=== PATIENT | male | born 1975 | race African-American/Black ===

== ENCOUNTER 2017-10-01 06:39 | Emergency (ER) | payer MEDICAID ==
[~2017-10-01] VITALS: Ht 175.3 cm; Wt 83.9 kg
[2017-10-01 08:01] LABS: Basophils # (auto) 0 uL; Basophils % (auto) 0.6 % (0.0-2.0); Eosinophils # (auto) 0.1 uL; Eosinophils % (auto) 0.8 % (0.0-7.0); Hematocrit 39.8 % (41.0-53.0); Hemoglobin 13.6 g/dL (13.5-17.5); Lymphocytes # (auto) 0.9 uL; Lymphocytes % (auto) 13.6 % (10.0-50.0); Mean Corpuscular Hemoglobin 30.5 pg (28.0-32.0); Mean Corpuscular Hgb Conc. 34.2 g/dL (32.0-36.0); Mean Corpuscular Volume 89.1 fL (80.0-100.0); Monocytes # (auto) 0.5 uL; Monocytes % (auto) 7.1 % (0.0-12.0); Neutrophils # (auto) 5.3 uL; Neutrophils % (auto) 77.9 % (37.0-80.0); Platelet Count (auto) 198 10^3/uL (140-450); Red Blood Cells 4.47 10^6/uL (4.5-5.90); White Blood Cell 6.7 10^3/uL (4.4-10.8)
[2017-10-01 08:12] LABS: INR 1.02 (0.9-1.15); Prothrombin Time 11.1 sec (9.37-12.3)
[2017-10-01 08:18] LABS: Amylase 35 U/L (25-115); Anion Gap 8 (5-15); BUN/Creatinine Ratio 16.7; Blood Urea Nitrogen 15 mg/dL (7-18); Calcium 8.8 mg/dL (8.5-10.1); Carbon Dioxide 26 mmol/L (21-32); Chloride 108 mmol/L (98-107); GFR African American 120 mL/min; GFR Non-African American 99 mL/min; Glucose 121 mg/dL (74-106); Lipase 143 U/L (73-393); Magnesium 2.3 mg/dL (1.6-2.6); Sodium 142 mmol/L (136-145)
[2017-10-01] MEDS ORDERED: SODIUM CHLORIDE 0.9% 1,000 ML IV ONE ×2 (08:18)
[2017-10-01] MEDS ORDERED: MORPHINE SULFATE 8mg/ml INJ SDV IV ONE ×2 (08:30→08:45)
[2017-10-01] MEDS ORDERED: ONDANSETRON HCL 4 MG/2 ML VIAL IV ONE (08:30)
[2017-10-01 10:35] VITALS: BP 103/59
[2017-10-01 11:11] LABS: Urine WBC None Seen /hpf (0 - 3)
[2017-10-01 11:26] LABS: Urine Amorphous Crystal FEW /hpf (None Seen); Urine Bacteria NONE SEEN /hpf (None Seen); Urine Blood Negative /uL (Negative); Urine Specific Gravity 1.021 (1.001-1.035)
== END 2017-10-01 11:28 | disposition home or self-care (01) ==
LOC: EDBD 06:39 → ER 06:39
DX: K80.20 Calculus of gallbladder without cholecystitis without obstruction (principal); F12.10 Cannabis abuse, uncomplicated; R53.1 Weakness
CPT/HCPCS: 36415; 74176; 80048; 81001; 82150; 83690; 83735; 84484; 85025; 85610; 85730; 93005; 96361; 96374; 96375; 99285; J2270; J2405; J7030

== ENCOUNTER 2018-11-09 22:55 | Emergency (ER) | payer MEDICAID ==
[~2018-11-09] VITALS: Ht 175.3 cm; Wt 81.6 kg
[2018-11-09 23:23] LABS: Basophils # (auto) 0.1 uL; Basophils % (auto) 0.9 % (0.0-2.0); Eosinophils # (auto) 0.1 uL; Eosinophils % (auto) 1.9 % (0.0-7.0); Hematocrit 41.6 % (41.0-53.0); Hemoglobin 14.2 g/dL (13.5-17.5); Lymphocytes # (auto) 1.9 uL; Lymphocytes % (auto) 27.3 % (10.0-50.0); Mean Corpuscular Hemoglobin 30.9 pg (28.0-32.0); Mean Corpuscular Hgb Conc. 34.2 g/dL (32.0-36.0); Mean Corpuscular Volume 90.4 fL (80.0-100.0); Monocytes # (auto) 0.5 uL; Monocytes % (auto) 7.1 % (0.0-12.0); Neutrophils # (auto) 4.4 uL; Neutrophils % (auto) 62.8 % (37.0-80.0); Nucleated Red Blood Cells % 0.1 %; Platelet Count (auto) 218 10^3/uL (140-450); Red Blood Cells 4.61 10^6/uL (4.5-5.90); Red Cell Distribution Width 13.4 % (11.8-14.3); White Blood Cell 6.9 10^3/uL (4.4-10.8)
[2018-11-09 23:31] LABS: Urine Bacteria FEW /hpf (None Seen); Urine Blood Negative /uL (Negative); Urine Specific Gravity 1.018 (1.001-1.035); Urine WBC 2 /hpf (0 - 3)
[2018-11-09 23:45] LABS: Albumin 3.9 g/dL (3.4-5.0); Calcium 9.2 mg/dL (8.5-10.1)
[2018-11-09 23:48] LABS: Bilirubin, Total 0.4 mg/dL (0.2-1.0); Total Protein 7.1 g/dL (6.4-8.2)
[2018-11-10 00:28] VITALS: BP 121/66
[2018-11-10] MEDS ORDERED: MORPHINE SULF INJ 2 MG/ML SYRINGE 1ML ONE (02:55)
[2018-11-10] MEDS ORDERED: ONDANSETRON HCL 4 MG/2 ML VIAL ONE (02:55)
[2018-11-10] MEDS ORDERED: metroNIDAZOLE 500 MG TAB ONE (02:56)
[2018-11-11] MEDS ORDERED: ONDANSETRON HCL 4 MG/2 ML VIAL IM ONE (09:30)
[2018-11-11] MEDS ORDERED: metroNIDAZOLE 500 MG TAB PO ONE (09:30)
[2018-11-11] MEDS ORDERED: MORPHINE SULF INJ 2 MG/ML SYRINGE 1ML IM ONE (09:30)
== END 2018-11-10 04:55 | disposition home or self-care (01) ==
LOC: ER 22:57
DX: K52.9 Noninfective gastroenteritis and colitis, unspecified (principal)
CPT/HCPCS: 36415; 74176; 80053; 81001; 83690; 85025; 99284; J7030; J2405